=== PATIENT | male | born 1970 | race African-American/Black ===

== ENCOUNTER 2022-05-02 09:00 | Observation (INO) | payer SELFPAY ==
[2022-05-02 09:27] LABS: #Basophils 0.1 10x3/uL (0.0-0.2); #Eosinphils 0.4 10x3/uL (0.0-0.5); #Monocytes 0.7 10x3/uL (0.0-1.1); #Neutrophils 6.9 10x3/uL (1.5-8.4); %Basophils 0.9 % (0.0-2.0); %Eosinophils 3.4 % (0.0-6.0); %Lymphocytes 32.3 % (18.0-47.0); %Monocytes 6.1 % (0.0-10.0); %Neutrophils 56.9 % (40.0-75.0); Hemoglobin 13.9 g/dL (13.5-17.5); Mean Corpuscular HGB CONC 33.7 g/dL (32.0-36.0); Mean Corpuscular Hemoglobin 31.7 pg (27.0-33.0); Mean Corpuscular Volume 94.1 fl (81.2-95.1); Mean Platelet Volume 10.1 fl (7.4-10.4); Platelet Count 321 10x3/uL (150-450); Red Blood Cell (RBC) Count 4.39 10x6/uL (4.32-5.72); White Blood Cell (WBC) Count 12.1 10x3/uL (3.5-10.5)
[2022-05-02 09:44] LABS: Acetaminophen Less than 10.0 mcg/mL (10.0-30.0); Alcohol Less than 10 mg/dL (Less than 10); Salicylate Less than 8.0 mg/dL (15.0-30.0)
[2022-05-02 09:47] LABS: ALT (SGPT) 17 U/L (8-55); AST (SGOT) 15 U/L (5-34); Albumin 4.6 g/dL (3.5-5.0); Alkaline Phosphatase 134 U/L (40-110); Anion Gap 16 mmol/L (10-20); BUN (Urea Nitrogen) 9 mg/dL (8.4-25.7); Bilirubin, Total 0.5 mg/dL (0.2-1.2); Calc. Creatinine Clearance 0 mL/min (70-130); Calcium 10.3 mg/dL (7.8-10.44); Carbon Dioxide 26 mmol/L (22-29); Chloride 102 mmol/L (98-107); Estimated GFR 86; Globulin 3.3 g/dL (2.4-3.5); Glucose 271 mg/dL (70-105); Lipase 30 U/L (8-78); Potassium 4.3 mmol/L (3.5-5.1); Protein, Total 7.9 g/dL (6.0-8.3); Sodium 140 mmol/L (136-145)
[2022-05-02 09:59] LABS: Actual Bicarbonate (HCO3v) 27 mEq/L (22-28); Base Excess 0.7 mEq/L (-2.0 to +3.0); Calcium, Ionized (venous) 1.21 mmol/L (1.16-1.32); Chloride (VBG) 105 mmol/L (98-106); Potassium (VBG) 4.84 mmol/L (3.70-5.30); Puncture Site Other Site; RapidComm Collect By lab tech; Sodium 141.1 mmol/L (133-146); pH (venous) 7.35 (7.32-7.43)
[2022-05-02] MEDS ORDERED: Aspirin Chewable 81 MG TAB ONE (11:04)
[2022-05-02 11:17] LABS: Bilirubin Neg (Negative); Blood, Urine Negative (Negative); Glucose, Urine (Dipstick) >=1000 mg/dL (Negative); Ketone, Urine Negative (Negative); Leukocyte Negative (Negative); Nitrite Negative (Negative); Protein, Urine (Dipstick) 30 mg/dl (Neg-Trace); Specific Gravity, Urine 1.005 (1.005-1.030); Urobilinogen Normal mg/dL (Less than 2)
[2022-05-02 11:20] LABS: Clarity Clear (Clear)
[2022-05-02 11:24] LABS: Amphetamine Not Detected (NotDetected); Barbiturates Screen Not Detected (NotDetected); Benzodiazepine Screen Not Detected (NotDetected); Cocaine Metabolite Screen Not Detected (NotDetected); Methadone Not Detected (NotDetected); Methamphetamine Not Detected (NotDetected); Opiate Screen Not Detected (NotDetected); Oxycodone Screen Not Detected (NotDetected); Phencyclidine (PCP) Not Detected (NotDetected); THC/Cannabinoid Screen Not Detected (NotDetected); Tricyclic Screen Not Detected (NotDetected)
[2022-05-02 11:35] LABS: Bacteria/HPF None Seen HPF (None Seen); RBC/HPF None Seen HPF (0-3); Squamous Epithelial None Seen HPF (0-3); WBC/HPF None Seen HPF (0-3)
[2022-05-02] MEDS ORDERED: hydrALAZINE 20 MG/ML VIAL SLOW IVP PRN (12:17)
[2022-05-02] MEDS ORDERED: Ondansetron PF 4 MG/2 ML Vial IVP PRN (12:17)
[2022-05-02] MEDS ORDERED: Acetaminophen 500 MG TAB PO PRN (12:17)
[2022-05-02] MEDS ORDERED: Ondansetron ODT 4 MG TAB PO PRN (12:17)
[2022-05-02] MEDS ORDERED: Dextrose 5% in Water 1,000 ML IV PRN (12:19)
[2022-05-02] MEDS ORDERED: Dextrose 50% Abboject 50 ML SYRINGE SLOW IVP PRN (12:19)
[2022-05-02 13:19] LABS: Troponin I Less than 0.010 ng/mL (< 0.028)
[2022-05-02] MEDS: Sodium Chloride 0.9% 1,000 ML IV SCH ×2 (14:27→19:58)
[2022-05-02 16:54] LABS: Troponin I Less than 0.010 ng/mL (< 0.028)
[2022-05-02 19:35] VITALS: BMI 24.5
[2022-05-02] MEDS: HumaLOG 300 UNITS/3 ML VIAL SC PRN (20:37)
[2022-05-02] MEDS: Metoprolol Tartrate 25 MG TAB PO SCH (20:37)
[2022-05-03] MEDS: HumaLOG 300 UNITS/3 ML VIAL SC PRN ×4 (04:33→20:35)
[2022-05-03] MEDS: Sodium Chloride 0.9% 1,000 ML IV SCH ×3 (04:33→17:23)
[2022-05-03 04:55] LABS: #Basophils 0.1 10x3/uL (0.0-0.2); #Eosinphils 0.3 10x3/uL (0.0-0.5); #Monocytes 0.7 10x3/uL (0.0-1.1); %Basophils 0.7 % (0.0-2.0); %Eosinophils 2.7 % (0.0-6.0); %Lymphocytes 35.1 % (18.0-47.0); %Neutrophils 55.2 % (40.0-75.0); Hemoglobin 11.8 g/dL (13.5-17.5); Mean Corpuscular HGB CONC 33.5 g/dL (32.0-36.0); Mean Corpuscular Hemoglobin 31.5 pg (27.0-33.0); Mean Corpuscular Volume 93.9 fl (81.2-95.1); Mean Platelet Volume 10.3 fl (7.4-10.4); Platelet Count 262 10x3/uL (150-450); RBC Distribution Width 14.2 % (11.5-14.5); Red Blood Cell (RBC) Count 3.75 10x6/uL (4.32-5.72); White Blood Cell (WBC) Count 10.9 10x3/uL (3.5-10.5)
[2022-05-03 05:12] LABS: ALT (SGPT) 12 U/L (8-55); AST (SGOT) 11 U/L (5-34); Albumin 3.4 g/dL (3.5-5.0); Alkaline Phosphatase 86 U/L (40-110); Anion Gap 12 mmol/L (10-20); BUN (Urea Nitrogen) 9 mg/dL (8.4-25.7); Bilirubin, Total 0.6 mg/dL (0.2-1.2); Calc. Creatinine Clearance 126 mL/min (70-130); Carbon Dioxide 25 mmol/L (22-29); Cardiac Risk 5.2 (Less than 4.5); Chloride 109 mmol/L (98-107); Cholesterol 202 mg/dl (< 200 Desired); Estimated GFR 106; Globulin 2.6 g/dL (2.4-3.5); Glucose 298 mg/dL (70-105); HDL Cholesterol 39 mg/dL (>60 Neg Risk); LDL Cholesterol, Calculated 92 mg/dL; Magnesium 1.6 mg/dL (1.6-2.6); Potassium 4.2 mmol/L (3.5-5.1); Sodium 142 mmol/L (136-145); Triglycerides 357 mg/dL (Less than 150)
[2022-05-03] MEDS: Lantus 1000 UNITS/10 ML VIAL SC SCH (09:03)
[2022-05-03] MEDS: Aspirin 81 mg Enteric Coated Tablet PO SCH (09:03)
[2022-05-03] MEDS: Metoprolol Tartrate 25 MG TAB PO SCH (09:03)
[2022-05-03] MEDS: Enoxaparin Sodium 40 MG/0.4 ML SYRINGE SC SCH (09:03)
[2022-05-03] MEDS: Magnesium Oxide 400 MG TAB PO SCH (09:03)
[2022-05-03 13:54] LABS: Hemoglobin A1c 9.5 % (4.0-6.0)
[2022-05-03] MEDS ORDERED: Losartan 25 MG TAB PO SCH (16:45)
[2022-05-03] MEDS ORDERED: Atorvastatin Calcium 40 MG TAB PO SCH (21:00)
[2022-05-04] MEDS: Sodium Chloride 0.9% 1,000 ML IV SCH ×2 (02:26→06:28)
[2022-05-04 04:27] LABS: #Basophils 0.1 10x3/uL (0.0-0.2); #Eosinphils 0.3 10x3/uL (0.0-0.5); #Monocytes 0.7 10x3/uL (0.0-1.1); #Neutrophils 6.9 10x3/uL (1.5-8.4); %Basophils 0.9 % (0.0-2.0); %Eosinophils 2.6 % (0.0-6.0); %Lymphocytes 31.7 % (18.0-47.0); %Monocytes 6.1 % (0.0-10.0); %Neutrophils 58.3 % (40.0-75.0); Hemoglobin 12.3 g/dL (13.5-17.5); Mean Corpuscular HGB CONC 33.5 g/dL (32.0-36.0); Mean Corpuscular Hemoglobin 31.6 pg (27.0-33.0); Mean Corpuscular Volume 94.3 fl (81.2-95.1); Mean Platelet Volume 10.3 fl (7.4-10.4); Platelet Count 268 10x3/uL (150-450); RBC Distribution Width 13.7 % (11.5-14.5); Red Blood Cell (RBC) Count 3.89 10x6/uL (4.32-5.72); White Blood Cell (WBC) Count 11.7 10x3/uL (3.5-10.5)
[2022-05-04 04:42] LABS: Anion Gap 12 mmol/L (10-20); BUN (Urea Nitrogen) 10 mg/dL (8.4-25.7); Calc. Creatinine Clearance 131 mL/min (70-130); Calcium 9.2 mg/dL (7.8-10.44); Carbon Dioxide 25 mmol/L (22-29); Chloride 108 mmol/L (98-107); Estimated GFR 107; Glucose 216 mg/dL (70-105); Potassium 3.6 mmol/L (3.5-5.1); Sodium 141 mmol/L (136-145)
[2022-05-04] MEDS: HumaLOG 300 UNITS/3 ML VIAL SC PRN (06:19)
[2022-05-04] MEDS ORDERED: metFORMIN 500 MG TAB PO SCH (08:00)
[2022-05-04 08:14] VITALS: BP 155/76; TEMP 99.2
[2022-05-04] MEDS ORDERED: Losartan 25 MG TAB PO SCH (09:00)
[2022-05-04] MEDS: Aspirin 81 mg Enteric Coated Tablet PO SCH (09:38)
[2022-05-04] MEDS: Magnesium Oxide 400 MG TAB PO SCH (09:38)
[2022-05-04] MEDS: Lantus 1000 UNITS/10 ML VIAL SC SCH (09:41)
[2022-05-04] MEDS: Enoxaparin Sodium 40 MG/0.4 ML SYRINGE SC SCH (09:43)
[2022-05-04 14:02] LABS: Hemoglobin A1c 9.3 % (4.0-6.0)
== END 2022-05-04 11:30 | disposition home or self-care (01) ==
LOC: CSHERS 09:00 → INTOOBSV 14:13 → CSHERHOLD 14:13 → CSHTELE 18:50
PROVIDERS: ADMIT Family Medicine; ATTEND Internal Medicine
DX: R55 Syncope and collapse (principal); R53.83 Other fatigue; E11.9 Type 2 diabetes mellitus without complications; I10 Essential (primary) hypertension; D72.829 Elevated white blood cell count, unspecified; Z79.82 Long term (current) use of aspirin; Z79.899 Other long term (current) drug therapy; Z79.4 Long term (current) use of insulin
CPT/HCPCS: 36415; 36416; 70450; 71045; 80048; 80053; 80061; 80306; 80307; 81003; 81015; 82010; 82805; 83036; 83690; 83735; 84443; 84484; 85025; 85379; 93005; 93306; 93880; 94760; 96360; 96372; G0378; J1650; J1815; J7050